=== PATIENT | female | born 1980 | race Caucasian/White ===

== ENCOUNTER 2017-03-01 14:06 | Emergency (ER) | payer MEDICAID, OTHER ==
[2017-03-01 14:19] VITALS: RESP 18
[2017-03-01] MEDS ORDERED: Sodium Chloride 0.9% 1,000 ML IV ONE (15:10)
[2017-03-01] MEDS ORDERED: Sodium Chloride 0.9% 1,000 ML ONE (15:18)
[2017-03-01 15:25] LABS: BASO % 0.3 % (0.0-2.0); EOS # 0.2 K/uL (0.0-0.7); EOS % 3.1 % (0.0-4.0); HEMATOCRIT 43.9 % (34.0-47.0); LYMPH # 2.8 K/uL (1.0-4.3); LYMPH % 37.2 % (20.0-40.0); MEAN CORPUSCULAR HEMOGLOBIN 28.4 pg (27.0-31.0); MEAN CORPUSCULAR HGB CONC 33.8 g/dL (33.0-37.0); MEAN PLATELET VOLUME 8.3 fL (7.2-11.7); MONO # 0.6 K/uL (0.0-0.8); MONO % 7.9 % (0.0-10.0); RED CELL DISTRIBUTION WIDTH 13.6 % (11.5-14.5); WHITE BLOOD COUNT 7.5 K/uL (4.8-10.8)
[2017-03-01 15:28] LABS: MEAN CELL VOLUME 83.9 fL (81.0-99.0)
--- NOTE | 2017-03-01 15:33 | C.PDOC ---
Time Seen by Provider: 03/01/17 15:04 Chief Complaint (Nursing): Abdominal Pain Past Medical History Vital Signs: Last Vital Signs Temp 97.9 F 03/01/17 14:14 Pulse 61 03/01/17 14:14 Resp 18 03/01/17 14:14 BP 111/73 03/01/17 14:14 Pulse Ox 99 03/01/17 14:14 Surgical History: Appendectomy, Cholecystectomy, Tonsillectomy Family History: States: Unknown Family Hx - Social History Hx Tobacco Use: No Hx Alcohol Use: No Hx Substance Use: No - Immunization History Hx Tetanus Toxoid Vaccination: No Hx Influenza Vaccination: No Hx Pneumococcal Vaccination: No ED Course And Treatment O2 Sat by Pulse Oximetry: 99 Disposition - Disposition
[2017-03-01 15:36] LABS: URINE BILIRUBIN NEGATIVE (NEGATIVE); URINE BLOOD 2+ (NEGATIVE); URINE COLOR Straw (YELLOW); URINE GLUCOSE (UA) NORMAL (Normal); URINE KETONE NEGATIVE (NEGATIVE); URINE LEUKOCYTE ESTERASE 1+ Leu/uL (Negative); URINE PROTEIN NEGATIVE (NEGATIVE); URINE UROBILINOGEN NORMAL mg/dL (0.2-1.0)
[2017-03-01 15:37] LABS: CHLORIDE 101 mmol/L (98-107)
[2017-03-01 15:38] LABS: POTASSIUM 3.9 mmol/L (3.6-5.2); RBC URINE 7 /hpf (0-3); SODIUM 135 mmol/L (132-148); WBC URINE 3 /hpf (0-5)
[2017-03-01 15:40] LABS: ALB/GLOB RATIO 1.3 (1.0-2.1); ALKALINE PHOSPHATASE 43 U/L (38-126); ALT/SGPT 29 U/L (9-52); AMYLASE 85 U/L (30-110); AST/SGOT 16 U/L (14-36); BILIRUBIN,TOTAL 0.4 mg/dL (0.2-1.3); BLOOD UREA NITROGEN 10 mg/dL (7-17); CARBON DIOXIDE 24 mmol/L (22-30); GFR AFRICAN-AMERICAN > 60; GLUCOSE,RANDOM 85 mg/dL (65-105); TOTAL PROTEIN 7.8 g/dL (6.3-8.3)
[2017-03-01 15:41] LABS: CALCIUM 8.8 mg/dl (8.6-10.4)
--- NOTE | 2017-03-01 15:45 | C.PDOC ---
History Of Present Illness 36 year old female, with no significant past medical history, presents to Emergency Department for evaluation of constant epigastric abdominal pain radiating to the back. Patient reports being seen by PMD, Dr. Maldonado, who instructed patient to report to ED for further evaluation. (+)nausea. Otherwise , denies vomiting, diarrhea, urinary symptoms, or fever. Time Seen by Provider: 03/01/17 15:04 Chief Complaint (Nursing): Abdominal Pain History Per: Patient History/Exam Limitations: no limitations Onset/Duration Of Symptoms: Hrs Current Symptoms Are (Timing): Still Present Location Of Pain/Discomfort: Epigastric Radiation Of Pain To:: Back Quality Of Discomfort: "Pain" Associated Symptoms: Nausea. denies: Vomiting, Diarrhea, Loss Of Appetite, Back Pain, Chest Pain, Urinary Symptoms Exacerbating Factors: None Alleviating Factors: None Additional History Per: Patient Abnormal Vaginal Bleeding: No Past Medical History Reviewed: Historical Data, Nursing Documentation, Vital Signs Vital Signs: Last Vital Signs Temp 97.9 F 03/01/17 14:14 Pulse 61 03/01/17 14:14 Resp 18 03/01/17 14:14 BP 111/73 03/01/17 14:14 Pulse Ox 99 03/01/17 18:13 - Medical History PMH: No Chronic Diseases Surgical History: Appendectomy, Cholecystectomy, Tonsillectomy Family History: States: Unknown Family Hx - Social History Hx Tobacco Use: No Hx Alcohol Use: No Hx Substance Use: No - Immunization History Hx Tetanus Toxoid Vaccination: No Hx Influenza Vaccination: No Hx Pneumococcal Vaccination: No Review Of Systems Except As Marked, All Systems Reviewed And Found Negative. Constitutional: Negative for: Fever, Chills Cardiovascular: Negative for: Chest Pain Respiratory: Negative for: Shortness of Breath Gastrointestinal: Positive for: Nausea, Abdominal Pain. Negative for: Vomiting , Diarrhea, Constipation Genitourinary: Negative for: Dysuria, Frequency, Hematuria, Vaginal Discharge Musculoskeletal: Negative for: Back Pain Neurological: Negative for: Headache, Dizziness Physical Exam - Physical Exam Appears: Non-toxic, Other (uncomfortable) Skin: Normal Color, Warm, Dry Head: Atraumatic, Normacephalic Eye(s): bilateral: Normal Inspection Oral Mucosa: Moist Neck: Normal ROM, Supple Chest: Symmetrical Cardiovascular: Rhythm Regular, No Murmur Respiratory: Normal Breath Sounds, No Rales, No Rhonchi, No Wheezing Gastrointestinal/Abdominal: Bowel Sounds (normal), Soft, Tenderness (epigastric) , No Guarding, No Rebound Back: Normal Inspection, No CVA Tenderness, No Vertebral Tenderness Extremity: Bilateral: Atraumatic, Normal ROM Neurological/Psych: Oriented x3, Normal Speech Gait: Steady ED Course And Treatment - Laboratory Results Result Diagrams: 03/01/17 15:18 03/01/17 15:18 O2 Sat by Pulse Oximetry: 99 (RA) Pulse Ox Interpretation: Normal - CT Scan/US Abd & Pelvis CT Other Rad Studies (CT/US): Read By Radiologist, Radiology Report Reviewed CT/US Interpretation: Accession No. : [id number]. Patient Name / ID : DARELL Nuñez / [id number]. Exam Date : 03/01/2017 16:52:58 ( Approved ). Study Comment : Sex / Age : F / 36Y. Creator : Raphael Arteaga MD. Dictator : Raphael Arteaga MD. Diabetes Nurse : High School Coordinator : Raphael Arteaga MD. Approver2 : Report Date : 03/01/2017 17:55:40. My Comment : . PROCEDURE: CT Abdomen and Pelvis with contrast. HISTORY: epigastric abd pain radiating to back. COMPARISON: None. TECHNIQUE: Contrast dose: 100 mL Visipaque 320. Radiation dose: Total exam DLP = 399.48 mGy-cm. This CT exam was performed using one or more of the following dose reduction techniques: Automated exposure control, adjustment of the mA and/or kV according to patient size, and/or use of iterative reconstruction technique. FINDINGS: LOWER THORAX : Unremarkable. LIVER: Unremarkable. No gross lesion or ductal dilatation. GALLBLADDER AND BILE DUCTS: Unremarkable. PANCREAS: Unremarkable. No gross lesion or ductal dilatation. SPLEEN: Unremarkable. ADRENALS: Unremarkable. No mass. KIDNEYS AND URETERS: Unremarkable. No hydronephrosis. No solid mass. VASCULATURE: Unremarkable. No aortic aneurysm. BOWEL: Unremarkable. No obstruction. No gross mural thickening. APPENDIX: Normal appendix. PERITONEUM : Unremarkable. No free fluid. No free air. LYMPH NODES: Unremarkable. No enlarged lymph nodes. BLADDER: Unremarkable. REPRODUCTIVE: Uterus significant for intrauterine device. No additional abnormality. BONES: No acute fracture. OTHER FINDINGS: None. IMPRESSION: No acute abnormality. Intrauterine device noted within uterus. The examination is otherwise unremarkable. Medical Decision Making Medical Decision Making: Plan: * Blood work * Urinalysis * Abd & Pelvis CT * Pepcid * Toradol * Zofran * IV fluids Reassess and dispo: Labs reviewed and unremarkable, no leukocytosis, no elevated lipase/amylase or LFT, no UTI. Patient reevaluated and is feeling better in no distress. Calling Dr Buenrostro [phone] Maldonado and discussed all findings including labs and CT. He agrees if patient is better and stable may follow up outpatient. Disposition - Disposition Referrals: Blanquita Maldonado MD [Staff Provider] - Disposition: HOME/ ROUTINE Disposition Time: 18:07 Condition: STABLE Additional Instructions: Thank you for letting us take care of you today. Your provider was REYNA Galeano. You were treated for gastritis. The emergency medical care you received today was directed at your acute symptoms. If you were prescribed any medication, please fill it and take as directed. It may take several days for your symptoms to resolve. Return to the Emergency Department if your symptoms worsen, do not improve, or if you have any other problems. Please follow up with Dr Maldonado in his office. Bring any paperwork you were given at discharge with you along with any medications you are taking to your follow up visit. Our treatment cannot replace ongoing medical care by a primary care provider (PCP) outside of the emergency department. Thank you for allowing the [facility] team to be part of your care today. Prescriptions: Omeprazole 20 mg PO DAILY #30 capsule. Instructions: Gastritis (DC), Diet for Ulcers and Gastritis (ED) Forms: [employer] (Citizen Of [place]) - POA Present On Arrival: None - Clinical Impression Clinical Impression: Gastritis, Epigastric abdominal pain - PA / CONTACT CENTRE SUPERVISOR / Resident Statement MD/DO has reviewed & agrees with the documentation as recorded. - Scribe Statement The provider has reviewed the documentation as recorded by the Paulino Juarez All medical record entries made by the Scribe were at my direction and personally dictated by me. I have reviewed the chart and agree that the record accurately reflects my personal performance of the history, physical exam, medical decision making, and the department course for this patient. I have also personally directed, reviewed, and agree with the discharge instructions and disposition.
[2017-03-01] MEDS ORDERED: Iodixanol 320 mg/ml 150 ml Bottle IV ONE (16:43)
--- NOTE | 2017-03-01 17:57 | CT ---
PROCEDURE: CT Abdomen and Pelvis with contrast HISTORY: epigastric abd pain radiating to back COMPARISON: None. TECHNIQUE: Contrast dose: 100 mL Visipaque 320 Radiation dose: Total exam DLP = 399.48 mGy-cm. This CT exam was performed using one or more of the following dose reduction techniques: Automated exposure control, adjustment of the mA and/or kV according to patient size, and/or use of iterative reconstruction technique. FINDINGS: LOWER THORAX: Unremarkable. LIVER: Unremarkable. No gross lesion or ductal dilatation. GALLBLADDER AND BILE DUCTS: Unremarkable. PANCREAS: Unremarkable. No gross lesion or ductal dilatation. SPLEEN: Unremarkable. ADRENALS: Unremarkable. No mass. KIDNEYS AND URETERS: Unremarkable. No hydronephrosis. No solid mass. VASCULATURE: Unremarkable. No aortic aneurysm. BOWEL: Unremarkable. No obstruction. No gross mural thickening. APPENDIX: Normal appendix. PERITONEUM: Unremarkable. No free fluid. No free air. LYMPH NODES: Unremarkable. No enlarged lymph nodes. BLADDER: Unremarkable. REPRODUCTIVE: Uterus significant for intrauterine device. No additional abnormality. BONES: No acute fracture. OTHER FINDINGS: None. IMPRESSION: No acute abnormality. Intrauterine device noted within uterus. The examination is otherwise unremarkable.
[2017-03-01 18:25] VITALS: BP 124/70; PULSE 74; TEMP 97.8
[2017-03-01 18:31] VITALS: O2SAT 99
== END 2017-03-01 18:25 | disposition home or self-care (01) ==
LOC: C.ER 14:06
DX: K29.70 Gastritis, unspecified, without bleeding (principal); R10.13 Epigastric pain
CPT/HCPCS: 74177; 80053; 81001; 82150; 83690; 84703; 85025; 96361; 96374; 96375; 99285; J1885; J2405; J7040; Q9967

== ENCOUNTER 2017-03-02 17:30 | Inpatient (IN) | payer OTHER ==
[2017-03-02] MEDS ORDERED: Sodium Chloride 0.9% 1,000 ML IV ONE (18:16)
--- NOTE | 2017-03-02 18:33 | C.PDOC ---
History Of Present Illness 36 y/o women with no pmhx, c/o epigastric pain that began yesterday morning. Pain radiates through to the back. Patient notes she was unable to eat due to the pain and nausea. Yesterday evening she was seen in the ER and had a full work up including labs and CT. Results were all normal and she was discharged home. Patient continued to have pain and seen by Dr. Maldonado this afternoon. Dr. Maldonado sent the patient back to the ER for consultation with Dr. Chan. Patient denies vomiting, diarrhea, or fever. Time Seen by Provider: 03/02/17 18:08 Chief Complaint (Nursing): Abdominal Pain History Per: Patient History/Exam Limitations: no limitations Onset/Duration Of Symptoms: Days Current Symptoms Are (Timing): Still Present Severity: Mild Location Of Pain/Discomfort: Epigastric Radiation Of Pain To:: Back (lower) Quality Of Discomfort: "Pain" Associated Symptoms: Nausea. denies: Fever, Chills, Vomiting, Diarrhea Recent travel outside of the [place]: No Additional History Per: Patient Past Medical History Reviewed: Historical Data, Nursing Documentation, Vital Signs Vital Signs: Last Vital Signs Temp 98.1 F 03/02/17 17:53 Pulse 64 03/02/17 17:53 Resp 20 03/02/17 17:53 BP 113/70 03/02/17 17:53 Pulse Ox 100 03/02/17 18:39 Surgical History: Appendectomy, Cholecystectomy, Tonsillectomy Family History: States: Unknown Family Hx - Social History Hx Tobacco Use: No Hx Alcohol Use: No Hx Substance Use: No - Immunization History Hx Tetanus Toxoid Vaccination: No Hx Influenza Vaccination: No Hx Pneumococcal Vaccination: No Review Of Systems Except As Marked, All Systems Reviewed And Found Negative. Constitutional: Negative for: Fever, Chills Gastrointestinal: Positive for: Nausea, Abdominal Pain. Negative for: Vomiting , Diarrhea Physical Exam - Physical Exam Appears: Non-toxic, No Acute Distress Skin: Warm, Dry Head: Atraumatic, Normacephalic Chest: Symmetrical Cardiovascular: Rhythm Regular, No Murmur Respiratory: Normal Breath Sounds, No Rales, No Rhonchi, No Wheezing Gastrointestinal/Abdominal: Soft, Tenderness (Epigastric area), No Guarding, No Rebound, No Other (Rigidity) Back: No CVA Tenderness Neurological/Psych: Oriented x3 ED Course And Treatment - Laboratory Results Result Diagrams: 03/02/17 18:35 03/02/17 18:35 Lab Interpretation: Normal O2 Sat by Pulse Oximetry: 100 (RA) Pulse Ox Interpretation: Normal Reevaluation Time: 18:55 Reassessment Condition: Unchanged - Physician Consult Information Outcome Of Conversation: Patient was seen in the ED by Dr Chan. He will schedule her for endoscopy in the morning. Medical Decision Making Medical Decision Making: Plans: * Blood labs * UA * IV fluids * Admit Disposition - Disposition Disposition: HOSPITALIZED Disposition Time: 18:56 Condition: STABLE - POA Present On Arrival: None - Clinical Impression Clinical Impression: Epigastric abdominal pain - Scribe Statement The provider has reviewed the documentation as recorded by the Scribe Esme carreon All medical record entries made by the Scribe were at my direction and personally dictated by me. I have reviewed the chart and agree that the record accurately reflects my personal performance of the history, physical exam, medical decision making, and the department course for this patient. I have also personally directed, reviewed, and agree with the discharge instructions and disposition.
[2017-03-02 18:43] LABS: BASO % 0.5 % (0.0-2.0); EOS # 0.2 K/uL (0.0-0.7); EOS % 2.6 % (0.0-4.0); HEMATOCRIT 42.4 % (34.0-47.0); LYMPH # 2.5 K/uL (1.0-4.3); LYMPH % 32.2 % (20.0-40.0); MEAN CELL VOLUME 83.6 fL (81.0-99.0); MEAN CORPUSCULAR HEMOGLOBIN 28.2 pg (27.0-31.0); MEAN CORPUSCULAR HGB CONC 33.7 g/dL (33.0-37.0); MEAN PLATELET VOLUME 7.8 fL (7.2-11.7); MONO # 0.4 K/uL (0.0-0.8); NRBC % 0.2 % (0.0-2.0); RED CELL DISTRIBUTION WIDTH 13.5 % (11.5-14.5); WHITE BLOOD COUNT 7.8 K/uL (4.8-10.8)
[2017-03-02 18:47] LABS: CHLORIDE 99 mmol/L (98-107)
[2017-03-02 18:48] LABS: POTASSIUM 4.4 mmol/L (3.6-5.2); SODIUM 135 mmol/L (132-148)
[2017-03-02 18:50] LABS: AST/SGOT 18 U/L (14-36); BILIRUBIN,TOTAL 0.5 mg/dL (0.2-1.3); CARBON DIOXIDE 28 mmol/L (22-30); GFR AFRICAN-AMERICAN > 60
[2017-03-02 18:51] LABS: ALB/GLOB RATIO 1.8 (1.0-2.1); ALKALINE PHOSPHATASE 40 U/L (38-126); ALT/SGPT 29 U/L (9-52); BLOOD UREA NITROGEN 8 mg/dL (7-17); CALCIUM 8.6 mg/dl (8.6-10.4); GLUCOSE,RANDOM 81 mg/dL (65-105); TOTAL PROTEIN 6.3 g/dL (6.3-8.3)
[2017-03-02] MEDS ORDERED: Sodium Chloride 0.9% 250 ML IV ONE (19:04)
[2017-03-02 19:09] LABS: RBC URINE 19 /hpf (0-3); URINE BACTERIA RARE (<OCC); URINE BILIRUBIN NEGATIVE (NEGATIVE); URINE BLOOD 2+ (NEGATIVE); URINE COLOR Straw (YELLOW); URINE GLUCOSE (UA) NORMAL (Normal); URINE KETONE NEGATIVE (NEGATIVE); URINE LEUKOCYTE ESTERASE 3+ Leu/uL (Negative); URINE PROTEIN NEGATIVE (NEGATIVE); URINE UROBILINOGEN NORMAL mg/dL (0.2-1.0); WBC URINE 41 /hpf (0-5)
[2017-03-02] MEDS: Sucralfate 1 gm/10 ml Oral Susp UD PO SCH (21:07)
[2017-03-02] MEDS ORDERED: Belladonna-Phenobarbital PO SCH (22:21)
[2017-03-03] MEDS: Sucralfate 1 gm/10 ml Oral Susp UD PO SCH ×3 (06:35→21:34)
[2017-03-03 09:20] LABS: CARCINOEMBRYONIC ANTIGEN 1.1 ng/mL (0-3.0)
[2017-03-03 09:23] LABS: CA 19-9 13.8 U/mL (0-37)
[2017-03-03] MEDS ORDERED: Pneumococcal 23-Valent Vaccine IM ONE (10:00)
[2017-03-03] MEDS ORDERED: Influenza Vaccine 60 mcg/0.5 mL SYR (4YR UP) IM ONE (10:00)
[2017-03-03] MEDS ORDERED: cefTRIAXone IV 1 gm in Dextros 50 ML IVPB SCH (10:00)
[2017-03-03] MEDS ORDERED: Belladonna-Phenobarbital PO SCH (10:00)
[2017-03-03] MEDS ORDERED: Lactated Ringer's 1,000 ML IV ONE (10:45)
[2017-03-03] MEDS ORDERED: Propofol 10 mg/ml Inj (20 ML) ONE (10:53)
[2017-03-03] MEDS ORDERED: Lactated Ringer's 500 ML IV SCH (12:15)
[2017-03-03] MEDS: Ciprofloxacin 400mg/200ml D5W 400 MG/200 ML BAG IVPB SCH (14:00)
[2017-03-03] MEDS: Lactated Ringer's 1,000 ML IV SCH (14:11)
[2017-03-03 15:16] LABS: AMYLASE 90 U/L (30-110)
[2017-03-03 17:02] LABS: RBC URINE 5 /hpf (0-3); URINE BACTERIA RARE (<OCC); URINE BILIRUBIN NEGATIVE (NEGATIVE); URINE BLOOD 1+ (NEGATIVE); URINE COLOR Yellow (YELLOW); URINE GLUCOSE (UA) NORMAL (Normal); URINE KETONE 1+ mg/dL (NEGATIVE); URINE LEUKOCYTE ESTERASE 1+ Leu/uL (Negative); URINE PROTEIN NEGATIVE (NEGATIVE); URINE UROBILINOGEN NORMAL mg/dL (0.2-1.0); WBC URINE 12 /hpf (0-5)
[2017-03-03 17:08] VITALS: RESP 20
[2017-03-03] MEDS: Belladonna-Phenobarbital PO SCH ×2 (17:50→22:26)
[2017-03-04] MEDS: Ciprofloxacin 400mg/200ml D5W 400 MG/200 ML BAG IVPB SCH ×2 (00:02→12:16)
--- NOTE | 2017-03-04 00:44 | HP ---
HISTORY OF PRESENT ILLNESS: This is a 36-year-old [place] female with no significant past medical history, presented for the second day to emergency room with symptoms of severe epigastric pain associated with nausea. The patient was treated a day before with PPI, antiemetics and IV fluids with no improvement. The patient was evaluated in the emergency room by meter shop superintendent and admitted for further management. The patient denied to have any similar symptoms before. REVIEW OF SYSTEMS: Other review of systems negative. ALLERGIES: NO KNOWN ALLERGIES. HOME MEDICATIONS: Omeprazole 20 mg as needed and ibuprofen 200 mg once a day as needed. SOCIAL HISTORY: No history of smoking, EtOH or substance abuse. FAMILY HISTORY: Noncontributory. PHYSICAL EXAMINATION: GENERAL: The patient is in mild distress due to epigastric pain. VITAL SIGNS: Blood pressure 102/67, temperature 97.2, respiratory rate 18 and pulse 57. HEENT: Pupils equal, reactive to light. Normal-appearing mucosa of the conjunctivae, oropharyngeal and nasal membrane mucosa. NECK: Supple. No JVD. No carotid bruit. No lymph node. No thyromegaly. CHEST AND LUNGS: Bilateral symmetrical expansion. Good air exchange. No rales. No rhonchi. CARDIOVASCULAR SYSTEM: PMI not localized. S1 and S2. No additional sounds. ABDOMEN: Normoactive bowel sounds. No tenderness. No organomegaly. No masses. EXTREMITIES: No cyanosis. No clubbing. No edema. CENTRAL NERVOUS SYSTEM: Alert, awake, oriented x3. No neurological deficit could be appreciated. ASSESSMENT: Severe epigastric pain. DIFFERENTIAL DIAGNOSIS: Include gastritis, less likely pancreatitis. The patient is status post cholecystectomy. PLAN: Follow GI recommendations and possible EGD by meter shop superintendent. Continue PPI. Continue IV fluids. Advance diet as tolerated. Bubba MD Jole
[2017-03-04] MEDS: Lactated Ringer's 1,000 ML IV SCH ×2 (03:35→05:14)
[2017-03-04] MEDS: Belladonna-Phenobarbital PO SCH ×2 (05:14→11:06)
[2017-03-04] MEDS: Sucralfate 1 gm/10 ml Oral Susp UD PO SCH (08:13)
[2017-03-04 09:34] VITALS: BP 93/60; PULSE 64; TEMP 98.4; O2SAT 97
--- NOTE | 2017-03-04 11:39 | US ---
HISTORY: abdominal pain COMPARISON: CT abdomen and pelvis with contrast performed 03/01/17, gallbladder ultrasound performed 12/25/15 TECHNIQUE: Sonographic evaluation of the abdomen. FINDINGS: LIVER: Measures 14.8 cm in sagittal dimension and appears unremarkable. No focal hepatic mass identified. The main portal vein appears patent with normal directional flow. No intrahepatic bile duct dilatation. GALLBLADDER: Cholecystectomy. COMMON BILE DUCT: Measures 6 mm. PANCREAS: Not well visualized. RIGHT KIDNEY: Measures 11.9 x 4.4 x 4.3cm. No obstructing calculus or hydronephrosis identified. LEFT KIDNEY: Measures 12.4 x 5.5 x 5.7cm. No obstructing calculus or hydronephrosis identified. SPLEEN: Measures approximately 10.5 cm. AORTA: Limited views appear unremarkable. IVC: Limited views appear unremarkable. OTHER FINDINGS: None. IMPRESSION: Cholecystectomy.
--- NOTE | 2017-03-04 12:25 | CP.PCM.PN ---
Subjective - Date & Time of Evaluation Date of Evaluation: 03/04/17 Time of Evaluation: 12:20 - Subjective Subjective: Patient seen today, denies any abdominal pain, N/V/D , tolerating diet a febrile s/p EGD- Acute gastritis( see full report for details ) Objective - Vital Signs/Intake and Output Vital Signs (last 24 hours): Temp Pulse Resp BP Pulse Ox 98.4 F 64 20 93/60 L 97 03/04/17 08:00 03/04/17 08:00 03/04/17 08:00 03/04/17 08:00 03/04/17 08:00 Intake and Output: 03/04/17 03/04/17 06:59 18:59 Intake Total 950 Balance 950 - Medications Medications: Current Medications Belladonna/Phenobarbital () 1 tab PO Q6H [facility] Last Admin: 03/04/17 11:06 Dose: 1 tab Ciprofloxacin (Cipro 400mg/200ml Dsw) 400 mg in 200 mls @ 133 mls/hr IVPB Q12H [facility] Last Admin: 03/04/17 12:16 Dose: 133 mls/hr Lactated Ringer's (Lactated Ringer's) 1,000 mls @ 75 mls/hr IV .[id number] [facility] Last Admin: 03/04/17 05:14 Dose: 75 mls/hr Metoclopramide HCl (Reglan) 5 mg IVP Q6 [facility] Last Admin: 03/04/17 11:07 Dose: 5 mg Pantoprazole Sodium (Protonix Inj) 40 mg IVP Q12H [facility] Last Admin: 03/04/17 06:18 Dose: 40 mg Sucralfate (Carafate Oral Susp) 1 gm PO ACBHS [facility] Last Admin: 03/04/17 08:13 Dose: Not Given - Labs Labs: 03/02/17 18:35 03/02/17 18:35 Assessment and Plan - Assessment and Plan (Free Text) Assessment: A/P 36 yr old female admitted for epigastric pain and nausea, UTI s/p EGD- gastritis pt started on cipro for uti and repeat urine shows improvement seen by Dr. Maldonado today as per Dr. maldonado cleared for discharge home today and continue protonix and f/u with his office in 1 week discharge plan discussed with patient and at bedside , who understands and agrees with plan
--- NOTE | 2017-03-04 12:27 | PN ---
LOCATION: [facility], bed A. SUBJECTIVE: This is a 36-year-old female seen and examined in rounds with reported significant clinical changes with intermittent period of abdominal pain as well as less oral intake; as scheduled before abdominal ultrasound to be done today. The patient still has intermittent period of abdominal pain, but no reported vomiting. The entire chart is reviewed including, but not limited to the most recent lab and radiology study results, current and the previous medication list, current and the previous medical events. Case discussed with Dr. Maldonado as well as the patient's family and the staff at length. Her lipase and amylase level were reported to be normal as well as all the reported cancer markers, but still has evidence of urinary tract infection. PHYSICAL EXAMINATION: GENERAL: A 36-year-old female, awake, alert and oriented. VITAL SIGNS: Afebrile with pulse of 60, blood pressure 100/62 with respiratory rate 18 to 20. HEENT: Shows pale, dry mucous membrane. Nonicteric sclerae. LUNGS: Few scattered crepitations, decreased air entry at bases. HEART: Positive S1 and S2. ABDOMEN: Soft. Bowel sounds are present with midepigastric tenderness. No mass or organomegaly. No rebound tenderness or guarding. VASCULAR: Peripheral pulse are present bilaterally. IMPRESSION: 1. Re-exacerbation of peptic ulcer disease with acute gastritis. 2. Duodenitis. 3. Status post cholecystectomy, appendectomy and tonsillectomy by history. SUGGESTIONS: 1. I agree with your plan. 2. Carafate liquid. 3. tab 1 three times a day p.r.n. 4. Ativan 0.5 mg 1 tablet p.o. at bedtime. Further recommendation to follow. Tanika Harris MD cc: Tanika Harris MD
--- NOTE | 2017-03-06 00:50 | DS ---
REASON FOR ADMISSION: This is a 36-year-old [place] female with history of H. pylori gastritis, who was admitted for severe upper abdominal pain that radiates to the back. COURSE OF HOSPITALIZATION: The patient was admitted to medical floor and she was started on IV fluids. The patient had a GI evaluation by Dr. Chan and the patient underwent upper endoscopy that showed gastritis. The patient symptoms gradually resolved and the patient was discharged home to follow up the pathology report of the gastric biopsy and continue Protonix 40 mg twice a day. FINAL DIAGNOSIS: Abdominal pain, likely secondary to acute gastritis. [facility] MD Joel
--- NOTE | 2017-03-06 17:56 | CON ---
DATE: 03/02/[address] Dr[address] Blanquita Maldonado REASON FOR CONSULTATION: I was called for GI consultation by the admitting MD as well as ER staff. The patient is seen and fully examined on 06/02/2016 as requested by the admitting medical team. The entire chart is reviewed including, but not limited to most recent lab and radiology study results, current and previous medication list, and current and the previous medical events. The patient is examined in the presence of her . HISTORY OF PRESENT ILLNESS: This is a 36-year-old female admitted to the hospital through the emergency room with persistent severe midepigastric pain radiating to her back, nausea, dyspepsia, unable due to her pain and her persistent dyspepsia, but no episodes of vomiting recently. No active bleeding. The patient had been recently under severe stress. PAST MEDICAL HISTORY: Including, but not limited to: 1. Peptic ulcer disease. 2. Cholecystectomy. 3. Status post appendectomy. 4. Status post tonsillectomy. FAMILY HISTORY: Unknown. SOCIAL HISTORY: No known history of cigarette smoking or alcohol intake. CURRENT MEDICATIONS: Medication lists were reviewed. ALLERGIES TO MEDICATIONS: UNKNOWN. After being admitted to the hospital, initial workup showed normal CBC as well as normal SMA-7. I ordered lipase and amylase level is still pending. PHYSICAL EXAMINATION: GENERAL: A 36-year-old female. VITAL SIGNS: Afebrile with stable vital signs, respiratory rate of 18 to 20, and pulse of 84. HEENT: Showed dry oral mucous membranes. Nonicteric sclerae. LUNGS: Few scattered crepitation. Decreased air entry at bases. HEART: Positive S1 and S2. ABDOMEN: Soft with severe midepigastric tenderness as well as midabdominal line tenderness. No mass or organomegaly. No rebound tenderness or guarding. RECTAL: The patient refused. EXTREMITIES: Without significant clubbing, cyanosis, or edema. NEUROLOGIC: No reported neurological deficits, sensory or motor. However, the patient appear to be somewhat anxious. IMPRESSION: 1. Re-exacerbation of peptic ulcer disease to rule out gastric versus duodenal ulcer. 2. Rule out biliary tree disorder. 3. Rule out small retained biliary tree stones. The patient is status post cholecystectomy. SUGGESTIONS: 1. Agree with your plan. 2. Abdominal ultrasound. 3. Proton pump inhibitor. 4. The patient is scheduled for upper endoscopy. 5. Further recommendation to follow. Case discussed at length with Dr. Maldonado as well as ER team at the time of my consultation. Tanika Harris MD
== END 2017-03-04 14:05 | disposition home or self-care (01) | DRG 182 ==
LOC: C.ER 17:30 → C.9E 18:17 → C.3T 19:05 → OBSVTOIN 03-03 10:54
PROVIDERS: ADMIT Internal Medicine; ATTEND Internal Medicine
PROC: 0DB68ZX Excision of Stomach, Via Natural or Artificial Opening Endoscopic, Diagnostic (ICD-10-PCS; principal; 2017-03-03 10:45)
DX: K29.00 Acute gastritis without bleeding (principal); N39.0 Urinary tract infection, site not specified; B96.81 Helicobacter pylori [H. pylori] as the cause of diseases classified elsewhere; K29.80 Duodenitis without bleeding; K44.9 Diaphragmatic hernia without obstruction or gangrene; Z90.49 Acquired absence of other specified parts of digestive tract; Z86.19 Personal history of other infectious and parasitic diseases; Z87.11 Personal history of peptic ulcer disease